=== PATIENT | female | born 1930 | race Caucasian/White ===

== ENCOUNTER 2021-10-09 11:49 | Inpatient (IN) | payer OTHER ==
[2021-10-09 11:59] VITALS: BMI 22.1
[2021-10-09] MEDS ORDERED: AZITHROMYCIN IVPB 500 MG in DEXTROSE 5%-WATER - 250 ML IVPB ONE (14:21)
[2021-10-09] MEDS ORDERED: ASPIRIN 81 MG CHEWABLE TABLETS PO ONE (14:21)
[2021-10-09] MEDS ORDERED: CEFTRIAXONE 1 GM in DEXTROSE 5%-WATER - 100 ML IVPB ONE (14:21)
[2021-10-09] MEDS ORDERED: ASPIRIN 81 MG CHEWABLE TABLETS ONE (14:31)
[2021-10-09] MEDS ORDERED: AZITHROMYCIN 500 MG VIAL IVPB ONE (14:32)
[2021-10-09] MEDS ORDERED: cefTRIAXone SODIUM 1 GM VIAL ONE (14:32)
[2021-10-09 15:23] LABS: ALBUMIN 3.3 g/dl (3.4-5.0); CALCIUM 9.3 mg/dL (8.5-10.1)
[2021-10-09 15:25] LABS: BASO % 0.6 % (0-2.0); EOS % 2.1 % (0-4.5); HEMATOCRIT 29.6 % (32.4-45.2); HEMOGLOBIN 9.8 GM/dL (10.7-15.3); LYMPH % 13.6 % (8-40); MCH 32.8 pg (25.7-33.7); MEAN CELL VOLUME 99.4 fl (80-96); MEAN PLT VOLUME 8.4 fl (7.5-11.1); MONO % 9.3 % (3.8-10.2); NEUT % 74.4 % (42.8-82.8); PLATELET COUNT 191 10^3/uL (134-434); RBC 2.98 M/mm3 (3.60-5.2); RDW 14.1 % (11.6-15.6); WHITE BLOOD COUNT 7.4 K/mm3 (4.0-10.0)
[2021-10-09 15:27] LABS: CREATININE 1.7 mg/dL (0.55-1.3)
[2021-10-09 15:28] LABS: BILIRUBIN,TOTAL 0.3 mg/dL (0.2-1); TOT PROT 6.2 g/dl (6.4-8.2)
[2021-10-10] MEDS: DOXYCYCLINE INJECTION 100 MG in DEXTROSE 5%-WATER 100 ML IVPB SCH ×3 (00:21→22:39)
[2021-10-10] MEDS ORDERED: ACETAMINOPHEN 1000 MG/100 ML BAG IVPB PRN ×2 (02:27→20:58)
[2021-10-10] MEDS ORDERED: cefTRIAXone SODIUM 1 GM VIAL ONE (09:18)
[2021-10-10] MEDS ORDERED: DOXYCYCLINE HYCLATE 100 MG VIAL ONE ×2 (09:18→09:19)
[2021-10-10] MEDS ORDERED: DEXTROSE 5%-WATER - 50 ML IVPB ONE (09:19)
[2021-10-10] MEDS ORDERED: DEXTROSE 5%-WATER 100 ML IVPB ONE (09:19)
[2021-10-10] MEDS: CHOLECALCIFEROL (VIT D3) 1,000 UNIT (25 MCG) TABLET PO SCH (10:08)
[2021-10-10] MEDS: PANTOPRAZOLE 40 MG TABLET PO SCH (10:11)
[2021-10-10] MEDS: ASCORBIC ACID 500 MG TABLET (FP) PO SCH (10:11)
[2021-10-10] MEDS: FERROUS SO4 325 MG TABLET (FP) PO SCH (10:11)
[2021-10-10] MEDS: SODIUM CHLORIDE 1,000 ML IV SCH (10:11)
[2021-10-10 12:39] LABS: BASO % 0.5 % (0-2.0); EOS % 1.9 % (0-4.5); HEMATOCRIT 29.7 % (32.4-45.2); HEMOGLOBIN 9.8 GM/dL (10.7-15.3); LYMPH % 14.2 % (8-40); MCH 32.8 pg (25.7-33.7); MCHC 32.9 g/dl (32.0-36.0); MEAN CELL VOLUME 99.8 fl (80-96); MEAN PLT VOLUME 8.4 fl (7.5-11.1); MONO % 6.2 % (3.8-10.2); NEUT % 77.2 % (42.8-82.8); PLATELET COUNT 189 10^3/uL (134-434); RBC 2.98 M/mm3 (3.60-5.2); RDW 13.5 % (11.6-15.6)
[2021-10-10] MEDS: CEFTRIAXONE 1 GM in DEXTROSE 5%-WATER - 50 ML IVPB SCH (12:49)
[2021-10-10 13:04] LABS: ALBUMIN 3.3 g/dl (3.4-5.0); CALCIUM 9.3 mg/dL (8.5-10.1)
[2021-10-10 13:05] LABS: BLOOD UREA NITROGEN 51.4 mg/dL (7-18); MAGNESIUM 2.6 mg/dL (1.8-2.4)
[2021-10-10 13:08] LABS: CREATININE 1.4 mg/dL (0.55-1.3)
[2021-10-10 13:10] LABS: BILIRUBIN,TOTAL 0.4 mg/dL (0.2-1); TOT PROT 6.1 g/dl (6.4-8.2)
[2021-10-10 14:55] LABS: PH,URINE 5.5 (5.0-8.0); URINE APPEARANCE CLEAR; URINE BILIRUBIN NEGATIVE (NEGATIVE); URINE COLOR YELLOW; URINE GLUCOSE (UA) NEGATIVE (NEGATIVE); URINE KETONE NEGATIVE (NEGATIVE); URINE LEUK ESTERASE NEGATIVE (NEGATIVE); URINE NITRITE NEGATIVE (NEGATIVE); URINE PROTEIN NEGATIVE (NEGATIVE); URINE UROBILINOGEN 0.2 mg/dL (0.2-1.0)
[2021-10-10] MEDS ORDERED: RIVAROXABAN 15 MG TABLET PO SCH (18:00)
[2021-10-10] MEDS ORDERED: ACETAMINOPHEN 1000 MG/100 ML BAG IVPB ONE ×2 (20:50→20:58)
[2021-10-10] MEDS ORDERED: ACETAMINOPHEN INJECTION 100 ML IVPB ONE (20:52)
[2021-10-10] MEDS: APIXABAN 2.5 MG TABLET PO SCH (21:01)
[2021-10-11] MEDS ORDERED: DOXYCYCLINE HYCLATE 100 MG VIAL ONE ×3 (08:31→20:14)
[2021-10-11] MEDS ORDERED: DEXTROSE 5%-WATER 100 ML IVPB ONE ×3 (08:31→20:14)
[2021-10-11] MEDS ORDERED: cefTRIAXone SODIUM 1 GM VIAL ONE (08:32)
[2021-10-11] MEDS: SODIUM CHLORIDE 1,000 ML IV SCH (09:43)
[2021-10-11] MEDS: CHOLECALCIFEROL (VIT D3) 1,000 UNIT (25 MCG) TABLET PO SCH (09:53)
[2021-10-11] MEDS: PANTOPRAZOLE 40 MG TABLET PO SCH (09:53)
[2021-10-11] MEDS: APIXABAN 2.5 MG TABLET PO SCH ×2 (09:53→21:50)
[2021-10-11] MEDS: FERROUS SO4 325 MG TABLET (FP) PO SCH (09:53)
[2021-10-11] MEDS: ASCORBIC ACID 500 MG TABLET (FP) PO SCH (09:53)
[2021-10-11] MEDS: DOXYCYCLINE INJECTION 100 MG in DEXTROSE 5%-WATER 100 ML IVPB SCH ×2 (11:00→21:50)
[2021-10-11] MEDS: MEGESTROL ACETATE 40 MG TABLET PO SCH (11:03)
[2021-10-11] MEDS: CEFTRIAXONE 1 GM in DEXTROSE 5%-WATER - 50 ML IVPB SCH (13:38)
[2021-10-12 07:05] LABS: BASO % 0.5 % (0-2.0); EOS % 2.7 % (0-4.5); HEMATOCRIT 25.6 % (32.4-45.2); HEMOGLOBIN 8.7 GM/dL (10.7-15.3); LYMPH % 17.1 % (8-40); MCH 33.7 pg (25.7-33.7); MEAN CELL VOLUME 99.3 fl (80-96); MONO % 7.7 % (3.8-10.2); PLATELET COUNT 162 10^3/uL (134-434); RBC 2.58 M/mm3 (3.60-5.2); RDW 13.6 % (11.6-15.6); WHITE BLOOD COUNT 7.2 K/mm3 (4.0-10.0)
[2021-10-12 07:20] LABS: BLOOD UREA NITROGEN 30.2 mg/dL (7-18); CALCIUM 8.4 mg/dL (8.5-10.1)
[2021-10-12 07:21] LABS: MAGNESIUM 2.2 mg/dL (1.8-2.4)
[2021-10-12 07:23] LABS: CREATININE 0.9 mg/dL (0.55-1.3)
[2021-10-12 07:25] LABS: BILIRUBIN,TOTAL 0.4 mg/dL (0.2-1); TOT PROT 5.2 g/dl (6.4-8.2)
[2021-10-12 07:55] LABS: ALBUMIN 2.6 g/dl (3.4-5.0)
[2021-10-12] MEDS ORDERED: DEXTROSE 5%-WATER 100 ML IVPB ONE (09:48)
[2021-10-12] MEDS ORDERED: DOXYCYCLINE HYCLATE 100 MG VIAL ONE (09:48)
[2021-10-12] MEDS ORDERED: cefTRIAXone SODIUM 1 GM VIAL ONE (09:49)
[2021-10-12] MEDS ORDERED: DEXTROSE 5%-WATER - 50 ML IVPB ONE (09:49)
[2021-10-12] MEDS: SODIUM CHLORIDE 1,000 ML IV SCH (10:02)
[2021-10-12] MEDS: PANTOPRAZOLE 40 MG TABLET PO SCH (10:03)
[2021-10-12] MEDS: MEGESTROL ACETATE 40 MG TABLET PO SCH (10:03)
[2021-10-12] MEDS: ASCORBIC ACID 500 MG TABLET (FP) PO SCH (10:04)
[2021-10-12] MEDS: FERROUS SO4 325 MG TABLET (FP) PO SCH (10:04)
[2021-10-12] MEDS: APIXABAN 2.5 MG TABLET PO SCH ×2 (10:04→21:17)
[2021-10-12] MEDS: CHOLECALCIFEROL (VIT D3) 1,000 UNIT (25 MCG) TABLET PO SCH (10:04)
[2021-10-12] MEDS: CEFTRIAXONE 1 GM in DEXTROSE 5%-WATER - 50 ML IVPB SCH (10:04)
[2021-10-12] MEDS: DOXYCYCLINE INJECTION 100 MG in DEXTROSE 5%-WATER 100 ML IVPB SCH (10:05)
[2021-10-12] MEDS: ACETAMINOPHEN 325 MG TABLET (FP) PO PRN ×2 (12:49→21:23)
[2021-10-13 07:01] LABS: BASO % 0.5 % (0-2.0); EOS % 2.4 % (0-4.5); HEMATOCRIT 25.2 % (32.4-45.2); HEMOGLOBIN 8.4 GM/dL (10.7-15.3); LYMPH % 16.9 % (8-40); MCH 33.1 pg (25.7-33.7); MCHC 33.2 g/dl (32.0-36.0); MEAN CELL VOLUME 99.6 fl (80-96); MEAN PLT VOLUME 8.2 fl (7.5-11.1); MONO % 6.5 % (3.8-10.2); NEUT % 73.7 % (42.8-82.8); PLATELET COUNT 151 10^3/uL (134-434); RBC 2.53 M/mm3 (3.60-5.2); RDW 13.4 % (11.6-15.6); WHITE BLOOD COUNT 6.9 K/mm3 (4.0-10.0)
[2021-10-13 07:42] LABS: CREATININE 0.8 mg/dL (0.55-1.3)
[2021-10-13 07:43] LABS: ALBUMIN 2.5 g/dl (3.4-5.0); BLOOD UREA NITROGEN 23.3 mg/dL (7-18)
[2021-10-13 07:44] LABS: BILIRUBIN,TOTAL 0.3 mg/dL (0.2-1); CALCIUM 8.7 mg/dL (8.5-10.1); TOT PROT 4.8 g/dl (6.4-8.2)
[2021-10-13] MEDS ORDERED: DEXTROSE 5%-WATER - 50 ML IVPB ONE (09:18)
[2021-10-13] MEDS ORDERED: cefTRIAXone SODIUM 1 GM VIAL ONE (09:18)
[2021-10-13] MEDS: MEGESTROL ACETATE 40 MG TABLET PO SCH (10:01)
[2021-10-13] MEDS: CHOLECALCIFEROL (VIT D3) 1,000 UNIT (25 MCG) TABLET PO SCH (10:01)
[2021-10-13] MEDS: APIXABAN 2.5 MG TABLET PO SCH ×2 (10:01→21:15)
[2021-10-13] MEDS: FERROUS SO4 325 MG TABLET (FP) PO SCH (10:01)
[2021-10-13] MEDS: ASCORBIC ACID 500 MG TABLET (FP) PO SCH (10:01)
[2021-10-13] MEDS: PANTOPRAZOLE 40 MG TABLET PO SCH (10:01)
[2021-10-13] MEDS: CEFTRIAXONE 1 GM in DEXTROSE 5%-WATER - 50 ML IVPB SCH (10:01)
[2021-10-13 12:08] LABS: SARS-CoV-2 NAA Not Detected (Not Detected)
[2021-10-13] MEDS: DOXYCYCLINE INJECTION 100 MG in DEXTROSE 5%-WATER 100 ML IVPB SCH (13:50)
[2021-10-13] MEDS: ACETAMINOPHEN 325 MG TABLET (FP) PO PRN (20:23)
[2021-10-14] MEDS: ACETAMINOPHEN 325 MG TABLET (FP) PO PRN ×3 (06:11→22:25)
[2021-10-14] MEDS: MEGESTROL ACETATE 40 MG TABLET PO SCH (09:38)
[2021-10-14] MEDS: ASCORBIC ACID 500 MG TABLET (FP) PO SCH (09:38)
[2021-10-14] MEDS: APIXABAN 2.5 MG TABLET PO SCH ×2 (09:38→22:25)
[2021-10-14] MEDS: CHOLECALCIFEROL (VIT D3) 1,000 UNIT (25 MCG) TABLET PO SCH (09:38)
[2021-10-14] MEDS: PANTOPRAZOLE 40 MG TABLET PO SCH (09:38)
[2021-10-14] MEDS: FERROUS SO4 325 MG TABLET (FP) PO SCH (09:38)
[2021-10-15] MEDS: APIXABAN 2.5 MG TABLET PO SCH ×2 (10:37→22:26)
[2021-10-15] MEDS: MEGESTROL ACETATE 40 MG TABLET PO SCH (10:37)
[2021-10-15] MEDS: PANTOPRAZOLE 40 MG TABLET PO SCH (10:37)
[2021-10-15] MEDS: CHOLECALCIFEROL (VIT D3) 1,000 UNIT (25 MCG) TABLET PO SCH (10:37)
[2021-10-15] MEDS: FERROUS SO4 325 MG TABLET (FP) PO SCH (10:37)
[2021-10-15] MEDS: ASCORBIC ACID 500 MG TABLET (FP) PO SCH (10:37)
[2021-10-15 11:42] LABS: BASO % 0.8 % (0-2.0); EOS % 2.4 % (0-4.5); HEMATOCRIT 26.8 % (32.4-45.2); HEMOGLOBIN 8.8 GM/dL (10.7-15.3); LYMPH % 20.3 % (8-40); MCH 32.6 pg (25.7-33.7); MCHC 32.7 g/dl (32.0-36.0); MEAN CELL VOLUME 99.8 fl (80-96); MEAN PLT VOLUME 8.6 fl (7.5-11.1); MONO % 7.2 % (3.8-10.2); NEUT % 69.3 % (42.8-82.8); PLATELET COUNT 174 10^3/uL (134-434); RBC 2.69 M/mm3 (3.60-5.2); RDW 13.3 % (11.6-15.6); WHITE BLOOD COUNT 6.7 K/mm3 (4.0-10.0)
[2021-10-15 12:01] LABS: CALCIUM 9.5 mg/dL (8.5-10.1)
[2021-10-15 12:02] LABS: BLOOD UREA NITROGEN 23.2 mg/dL (7-18)
[2021-10-15 12:05] LABS: CREATININE 0.9 mg/dL (0.55-1.3)
[2021-10-15] MEDS: ACETAMINOPHEN 325 MG TABLET (FP) PO PRN (17:08)
[2021-10-16 09:34] VITALS: BP 146/97; PULSE 86; TEMP 98.4
[2021-10-16] MEDS: ASCORBIC ACID 500 MG TABLET (FP) PO SCH (09:45)
[2021-10-16] MEDS: MEGESTROL ACETATE 40 MG TABLET PO SCH (09:45)
[2021-10-16] MEDS: PANTOPRAZOLE 40 MG TABLET PO SCH (09:45)
[2021-10-16] MEDS: FERROUS SO4 325 MG TABLET (FP) PO SCH (09:45)
[2021-10-16] MEDS: APIXABAN 2.5 MG TABLET PO SCH (09:45)
[2021-10-16] MEDS: CHOLECALCIFEROL (VIT D3) 1,000 UNIT (25 MCG) TABLET PO SCH (09:45)
[2021-10-16] MEDS: ACETAMINOPHEN 325 MG TABLET (FP) PO PRN (13:03)
== END 2021-10-16 14:33 | DRG 193 ==
LOC: FER 11:49 → FM/S 14:33 → J4W 10-10 02:25
PROVIDERS: ADMIT Internal Medicine; ATTEND Nurse Practitioner Acute Care
DX: J12.82 Pneumonia due to coronavirus disease 2019 (principal); U07.1 COVID-19; N18.4 Chronic kidney disease, stage 4 (severe); I13.0 Hypertensive heart and chronic kidney disease with heart failure and stage 1 through stage 4 chronic kidney disease, or unspecified chronic kidney disease; I24.8 Other forms of acute ischemic heart disease; I50.32 Chronic diastolic (congestive) heart failure; I25.10 Atherosclerotic heart disease of native coronary artery without angina pectoris; I48.91 Unspecified atrial fibrillation; J44.9 Chronic obstructive pulmonary disease, unspecified; F03.90 Unspecified dementia, unspecified severity, without behavioral disturbance, psychotic disturbance, mood disturbance, and anxiety; I27.20 Pulmonary hypertension, unspecified; R62.7 Adult failure to thrive
CPT/HCPCS: 36415; 70450-TC; 71045-TC-FY; 71250-TC; 72125-TC; 72170-TC-FY; 80048; 80053; 81003; 82436; 82550; 82607; 82728; 82746; 82962; 83690; 83735; 83880; 84133; 84300; 84484; 85025; 85379; 86140; 87086; 93005; 93306-TC; 97116-GP; 97162-GP; 99285-25; C9803-CS; J8999; U0003; U0005

== ENCOUNTER 2022-06-15 13:10 | Inpatient (IN) | payer OTHER, MEDICARE ==
[2022-06-15 15:34] LABS: INR 1.04 (0.83-1.09)
[2022-06-15 15:37] LABS: ACTIVATED PTT 27.1 SECONDS (25.2-36.5)
[2022-06-15 15:41] LABS: HEMATOCRIT 30.3 % (32.4-45.2); HEMOGLOBIN 10.2 G/dL (10.7-15.3); MCH 31.4 pg (25.7-33.7); MCHC 33.7 g/dl (32.0-36.0); MEAN CELL VOLUME 93.1 fl (80-96); MEAN PLT VOLUME 7.9 fl (7.5-11.1); PLATELET COUNT 350.6 10^3/uL (134-434); RBC 3.25 10^6/uL (3.60-5.2); RDW 14.6 % (11.6-15.6); WHITE BLOOD COUNT 11.7 10^3/uL (4.0-10.8)
[2022-06-15 15:41] LABS: ALBUMIN 3.2 g/dl (3.4-5.0); CALCIUM 9.1 mg/dl (8.5-10); CREATININE 2.2 mg/dl (0.55-1.3); MAGNESIUM 2.2 mg/dL (1.8-2.4); TOT PROT 6.2 g/dl (6.4-8.2)
[2022-06-15] MEDS ORDERED: SODIUM CHLORIDE 0.9% 500 ML INFUS.BAG IV ONE (16:22)
[2022-06-15] MEDS ORDERED: ACETAMINOPHEN 325 MG TABLET (FP) PO ONE ×2 (16:42→22:48)
[2022-06-15] MEDS ORDERED: ACETAMINOPHEN 325 MG TABLET (FP) ONE (16:50)
[2022-06-15 18:27] LABS: PLATELET ESTIMATE ADEQUATE
[2022-06-16 08:41] LABS: ALBUMIN 2.7 g/dl (3.4-5.0); CALCIUM 8.7 mg/dl (8.5-10); CREATININE 2.1 mg/dl (0.55-1.3); INR 1.08 (0.83-1.09); MAGNESIUM 2.2 mg/dL (1.8-2.4); PHOSPHOROUS 4.4 mg/dl (2.5-4.9); PROTHROMBIN TIME (PATIENT) 12.4 SEC (9.7-13.0); TOT PROT 5.2 g/dl (6.4-8.2)
[2022-06-16 08:44] LABS: ACTIVATED PTT 28.9 SECONDS (25.2-36.5)
[2022-06-16 09:35] LABS: HEMATOCRIT 26.1 % (32.4-45.2); HEMOGLOBIN 8.7 G/dL (10.7-15.3); MCHC 33.2 g/dl (32.0-36.0); MEAN CELL VOLUME 93.3 fl (80-96); MEAN PLT VOLUME 8.3 fl (7.5-11.1); PLATELET COUNT 299.7 10^3/uL (134-434); RDW 14.4 % (11.6-15.6); WHITE BLOOD COUNT 7.4 10^3/uL (4.0-10.8)
[2022-06-16] MEDS: ACETAMINOPHEN 325 MG TABLET (FP) PO PRN ×3 (09:56→22:24)
[2022-06-16] MEDS ORDERED: RIVAROXABAN 20 MG TABLET PO SCH (10:00)
[2022-06-16] MEDS ORDERED: PATIENT'S OWN MEDICATION (NON-FORMULARY) (Ferrous Sulfate [Iron] 325 MG Tablet) PO SCH (10:00)
[2022-06-16] MEDS ORDERED: PATIENT'S OWN MEDICATION (NON-FORMULARY) (Omeprazole Pediatric Solution 20 MG Capsule.Dr) PO SCH (10:00)
[2022-06-16] MEDS ORDERED: POTASSIUM CHLORIDE TABS 20 MEQ TABLET.ER (FP) PO ONE (10:16)
[2022-06-16] MEDS ORDERED: SODIUM CHLORIDE 1,000 ML IV SCH (10:30)
[2022-06-16 10:42] LABS: N-TERMINAL BNP 7401.4 pg/ml (5-450)
[2022-06-17] MEDS ORDERED: SODIUM CHLORIDE 1,000 ML IV SCH (02:49)
[2022-06-17 08:38] LABS: BASO % 0.7 % (0-2.0); HEMATOCRIT 27.2 % (32.4-45.2); HEMOGLOBIN 8.9 GM/dL (10.7-15.3); LYMPH % 26.6 % (8-40); MCH 30.1 pg (25.7-33.7); MCHC 32.8 g/dl (32.0-36.0); MEAN CELL VOLUME 91.8 fl (80-96); MEAN PLT VOLUME 8.2 fl (7.5-11.1); MONO % 7.1 % (3.8-10.2); NEUT % 64.6 % (42.8-82.8); PLATELET COUNT 289 10^3/uL (134-434); RBC 2.97 M/mm3 (3.60-5.2); RDW 14.4 % (11.6-15.6); WHITE BLOOD COUNT 8.4 K/mm3 (4.0-10.0)
[2022-06-17 09:19] LABS: ALBUMIN 2.7 g/dl (3.4-5.0); CALCIUM 9.1 mg/dL (8.5-10.1)
[2022-06-17 09:20] LABS: BLOOD UREA NITROGEN 78.7 mg/dL (7-18)
[2022-06-17] MEDS: ACETAMINOPHEN 325 MG TABLET (FP) PO PRN ×2 (09:22→13:20)
[2022-06-17 09:23] LABS: CREATININE 1.7 mg/dL (0.55-1.3)
[2022-06-17 09:24] LABS: BILIRUBIN,TOTAL 0.7 mg/dL (0.2-1); TOT PROT 5.3 g/dl (6.4-8.2)
[2022-06-17] MEDS: CHOLECALCIFEROL (VIT D3) 1,000 UNIT (25 MCG) TABLET PO SCH (09:25)
[2022-06-17] MEDS: FERROUS SO4 325 MG TABLET (FP) PO SCH (09:25)
[2022-06-17] MEDS: PANTOPRAZOLE 40 MG TABLET PO SCH (09:25)
[2022-06-17] MEDS ORDERED: PANTOPRAZOLE 40 MG TABLET PO SCH (10:00)
[2022-06-17] MEDS ORDERED: FERROUS SO4 325 MG TABLET (FP) PO SCH (10:00)
[2022-06-17] MEDS ORDERED: CHOLECALCIFEROL (VIT D3) 1,000 UNIT (25 MCG) TABLET PO SCH (10:00)
[2022-06-17] MEDS: SODIUM CHLORIDE 1 GM TABLET PO SCH ×2 (12:04→23:24)
[2022-06-17 18:02] VITALS: BMI 18.5
[2022-06-17] MEDS: RIVAROXABAN 20 MG TABLET PO SCH (18:24)
[2022-06-18] MEDS: ACETAMINOPHEN 325 MG TABLET (FP) PO PRN ×3 (03:12→15:03)
[2022-06-18] MEDS: PANTOPRAZOLE 40 MG TABLET PO SCH (09:29)
[2022-06-18] MEDS: CHOLECALCIFEROL (VIT D3) 1,000 UNIT (25 MCG) TABLET PO SCH (09:29)
[2022-06-18] MEDS: FERROUS SO4 325 MG TABLET (FP) PO SCH (09:29)
[2022-06-18 11:46] LABS: BASO % 0.5 % (0-2.0); EOS % 0.8 % (0-4.5); HEMATOCRIT 25.2 % (32.4-45.2); HEMOGLOBIN 8.2 GM/dL (10.7-15.3); LYMPH % 14.6 % (8-40); MCH 29.9 pg (25.7-33.7); MCHC 32.3 g/dl (32.0-36.0); MEAN CELL VOLUME 92.5 fl (80-96); MEAN PLT VOLUME 8.5 fl (7.5-11.1); MONO % 6.4 % (3.8-10.2); NEUT % 77.7 % (42.8-82.8); PLATELET COUNT 250 10^3/uL (134-434); RBC 2.73 M/mm3 (3.60-5.2); RDW 14.8 % (11.6-15.6); WHITE BLOOD COUNT 10.7 K/mm3 (4.0-10.0)
[2022-06-18] MEDS: SODIUM CHLORIDE 1 GM TABLET PO SCH (12:10)
[2022-06-18] MEDS: DEXTROSE 5%-0.45% SALINE 1,000 ML IV SCH (12:13)
[2022-06-18 12:20] LABS: CALCIUM 8.8 mg/dL (8.5-10.1)
[2022-06-18 12:25] LABS: CREATININE 1.5 mg/dL (0.55-1.3)
[2022-06-18] MEDS ORDERED: oxyCODONE HCL 5 MG TABLET PO PRN ×2 (17:31→18:38)
[2022-06-18] MEDS: RIVAROXABAN 20 MG TABLET PO SCH (18:34)
[2022-06-19 08:25] LABS: BASO % 0.5 % (0-2.0); EOS % 1.4 % (0-4.5); HEMATOCRIT 25.4 % (32.4-45.2); HEMOGLOBIN 8.2 GM/dL (10.7-15.3); LYMPH % 17.3 % (8-40); MCH 29.7 pg (25.7-33.7); MCHC 32.1 g/dl (32.0-36.0); MEAN CELL VOLUME 92.7 fl (80-96); MEAN PLT VOLUME 8.7 fl (7.5-11.1); MONO % 6.6 % (3.8-10.2); NEUT % 74.2 % (42.8-82.8); PLATELET COUNT 231 10^3/uL (134-434); RBC 2.75 M/mm3 (3.60-5.2); RDW 14.5 % (11.6-15.6); WHITE BLOOD COUNT 9.4 K/mm3 (4.0-10.0)
[2022-06-19 08:46] LABS: CALCIUM 8.6 mg/dL (8.5-10.1)
[2022-06-19 08:47] LABS: ALBUMIN 2.4 g/dl (3.4-5.0); BLOOD UREA NITROGEN 51.3 mg/dL (7-18)
[2022-06-19 08:50] LABS: CREATININE 1.3 mg/dL (0.55-1.3)
[2022-06-19 08:51] LABS: BILIRUBIN,TOTAL 0.7 mg/dL (0.2-1); TOT PROT 5.1 g/dl (6.4-8.2)
[2022-06-19] MEDS: FERROUS SO4 325 MG TABLET (FP) PO SCH (10:48)
[2022-06-19] MEDS: PANTOPRAZOLE 40 MG TABLET PO SCH (10:49)
[2022-06-19] MEDS: CHOLECALCIFEROL (VIT D3) 1,000 UNIT (25 MCG) TABLET PO SCH (10:49)
[2022-06-19] MEDS: DEXTROSE 5%-0.45% SALINE 1,000 ML IV SCH (10:50)
[2022-06-19] MEDS ORDERED: DEXTROSE 5%-0.45% SALINE 1,000 ML IV SCH (11:26)
[2022-06-19] MEDS: RIVAROXABAN 20 MG TABLET PO SCH (17:44)
[2022-06-19] MEDS: ACETAMINOPHEN 325 MG TABLET (FP) PO PRN (20:27)
[2022-06-20 07:18] LABS: BASO % 0.6 % (0-2.0); EOS % 1.4 % (0-4.5); HEMATOCRIT 23.8 % (32.4-45.2); HEMOGLOBIN 7.7 GM/dL (10.7-15.3); LYMPH % 19.1 % (8-40); MCH 30.2 pg (25.7-33.7); MCHC 32.5 g/dl (32.0-36.0); MEAN CELL VOLUME 92.9 fl (80-96); MEAN PLT VOLUME 8.8 fl (7.5-11.1); MONO % 9.1 % (3.8-10.2); NEUT % 69.8 % (42.8-82.8); PLATELET COUNT 193 10^3/uL (134-434); RBC 2.56 M/mm3 (3.60-5.2); RDW 14.9 % (11.6-15.6); WHITE BLOOD COUNT 9.2 K/mm3 (4.0-10.0)
[2022-06-20 07:39] LABS: CALCIUM 8.6 mg/dL (8.5-10.1)
[2022-06-20 07:40] LABS: BLOOD UREA NITROGEN 38.6 mg/dL (7-18)
[2022-06-20 07:43] LABS: CREATININE 1.1 mg/dL (0.55-1.3)
[2022-06-20] MEDS: PANTOPRAZOLE 40 MG TABLET PO SCH (09:34)
[2022-06-20] MEDS: CHOLECALCIFEROL (VIT D3) 1,000 UNIT (25 MCG) TABLET PO SCH (09:34)
[2022-06-20] MEDS: FERROUS SO4 325 MG TABLET (FP) PO SCH (09:35)
[2022-06-20 12:22] VITALS: BP 108/60; PULSE 80; RESP 20; TEMP 97.7
== END 2022-06-20 13:35 | disposition home health service (06) | DRG 683 ==
LOC: FER 13:10 → FM/S 16:24 → J4S 06-17 02:46
PROVIDERS: ADMIT Internal Medicine
DX: N17.9 Acute kidney failure, unspecified (principal); I13.0 Hypertensive heart and chronic kidney disease with heart failure and stage 1 through stage 4 chronic kidney disease, or unspecified chronic kidney disease; I50.32 Chronic diastolic (congestive) heart failure; I48.19 Other persistent atrial fibrillation; Z79.01 Long term (current) use of anticoagulants; D64.9 Anemia, unspecified; Z86.16 Personal history of COVID-19; Z95.2 Presence of prosthetic heart valve; R62.7 Adult failure to thrive; N18.9 Chronic kidney disease, unspecified; N85.8 Other specified noninflammatory disorders of uterus
CPT/HCPCS: 0241U-QW; 36415; 70460-TC; 71045-TC-FY; 72125-TC; 76775-TC; 76830-TC; 76856-TC; 80048; 80053; 81003; 82436; 82550; 82570; 82728; 83540; 83550; 83605; 83735; 83880; 84100; 84133; 84300; 84443; 84484; 85025; 85027; 85045; 85610; 85730; 87040; 87086; 87186; 93005; 97116-GP; 97161-GP; 99285-25

== ENCOUNTER 2022-07-03 10:21 | Inpatient (IN) | payer OTHER, MEDICARE ==
[2022-07-03] MEDS ORDERED: ACETAMINOPHEN 1000 MG/100 ML BAG IVPB ONE (10:32)
[2022-07-03] MEDS ORDERED: SODIUM CHLORIDE 0.9% 1000 ML INFUS.BAG IV ONE (10:32)
[2022-07-03] MEDS ORDERED: ACETAMINOPHEN INJECTION 100 ML IVPB ONE (10:40)
[2022-07-03 12:40] LABS: INR 2.28 (0.83-1.09); PROTHROMBIN TIME (PATIENT) 26.4 SEC (9.7-13.0)
[2022-07-03 12:43] LABS: ACTIVATED PTT 37.6 SECONDS (25.2-36.5)
[2022-07-03 12:45] LABS: HEMATOCRIT 22.9 % (32.4-45.2); HEMOGLOBIN 7.2 G/dL (10.7-15.3); MCH 29.6 pg (25.7-33.7); MCHC 31.6 g/dl (32.0-36.0); MEAN CELL VOLUME 93.9 fl (80-96); MEAN PLT VOLUME 7.6 fl (7.5-11.1); PLATELET COUNT 261.6 10^3/uL (134-434); RBC 2.44 10^6/uL (3.60-5.2); RDW 15.2 % (11.6-15.6); WHITE BLOOD COUNT 8.7 10^3/uL (4.0-10.8)
[2022-07-03 12:57] LABS: ALBUMIN 2.2 g/dl (3.4-5.0); BILIRUBIN,TOTAL 0.4 mg/dl (0.2-1); CALCIUM 8.1 mg/dl (8.5-10); TOT PROT 4.7 g/dl (6.4-8.2)
[2022-07-03 16:50] VITALS: BMI 19.1
[2022-07-03] MEDS: ACETAMINOPHEN 325 MG TABLET (FP) PO PRN (21:39)
[2022-07-04 08:24] LABS: ALBUMIN 2.3 g/dl (3.4-5.0); BILIRUBIN,TOTAL 0.8 mg/dl (0.2-1); CALCIUM 8.3 mg/dl (8.5-10)
[2022-07-04 10:33] LABS: BASO % 0.7 % (0-2.0); EOS % 1.2 % (0-4.5); HEMATOCRIT 27.9 % (32.4-45.2); HEMOGLOBIN 9.3 GM/dL (10.7-15.3); LYMPH % 7.2 % (8-40); MCH 30.5 pg (25.7-33.7); MCHC 33.2 g/dl (32.0-36.0); MEAN CELL VOLUME 91.9 fl (80-96); MEAN PLT VOLUME 7.6 fl (7.5-11.1); MONO % 6.4 % (3.8-10.2); NEUT % 84.5 % (42.8-82.8); PLATELET COUNT 296 10^3/uL (134-434); RBC 3.04 M/mm3 (3.60-5.2); RDW 14.6 % (11.6-15.6); WHITE BLOOD COUNT 9.1 K/mm3 (4.0-10.0)
[2022-07-05 08:08] LABS: CARCINOEMBRYONIC ANTIGEN 2.1 ng/mL (0.0-4.7)
[2022-07-05] MEDS: ACETAMINOPHEN 325 MG TABLET (FP) PO PRN ×2 (08:41→22:21)
[2022-07-05 09:39] LABS: CHOLESTEROL 97 mg/dl (50-200); HDL CHOLESTEROL 34 mg/dl (40-60); LDL CHOLESTEROL (ONLY DFH) 50 mg/dl (5-100); TRIGLYCERIDES 67 mg/dl (0-150)
[2022-07-05 12:12] LABS: HEMOGLOBIN 8.8 G/dL (10.7-15.3); MCH 30.3 pg (25.7-33.7); MCHC 32.6 g/dl (32.0-36.0); MEAN PLT VOLUME 7.6 fl (7.5-11.1); PLATELET COUNT 247.9 10^3/uL (134-434); RDW 15.2 % (11.6-15.6); WHITE BLOOD COUNT 8.3 10^3/uL (4.0-10.8)
[2022-07-05 12:47] LABS: BILIRUBIN,TOTAL 0.6 mg/dl (0.2-1); CALCIUM 8.2 mg/dl (8.5-10); TOT PROT 4.5 g/dl (6.4-8.2)
[2022-07-05 13:06] LABS: ANISOCYTOSIS 1+; PLATELET ESTIMATE ADEQUATE
[2022-07-05] MEDS: PANTOPRAZOLE 40 MG TABLET PO SCH (18:24)
[2022-07-05 19:52] VITALS: RESP 17
[2022-07-06 06:57] VITALS: BP 142/68
[2022-07-06] MEDS: ACETAMINOPHEN 325 MG TABLET (FP) PO PRN (08:29)
[2022-07-06 08:37] LABS: ALBUMIN 2.2 g/dl (3.4-5.0); BILIRUBIN,TOTAL 0.5 mg/dl (0.2-1); CALCIUM 8.4 mg/dl (8.5-10); CREATININE 0.9 mg/dl (0.55-1.3); TOT PROT 4.9 g/dl (6.4-8.2)
[2022-07-06] MEDS: PANTOPRAZOLE 40 MG TABLET PO SCH (09:57)
[2022-07-06 10:25] LABS: BASO % 0.5 % (0-2.0); EOS % 1.8 % (0-4.5); HEMATOCRIT 27.9 % (32.4-45.2); HEMOGLOBIN 9.3 GM/dL (10.7-15.3); LYMPH % 13.3 % (8-40); MCH 30.9 pg (25.7-33.7); MCHC 33.4 g/dl (32.0-36.0); MEAN CELL VOLUME 92.5 fl (80-96); MEAN PLT VOLUME 7.4 fl (7.5-11.1); MONO % 9.4 % (3.8-10.2); PLATELET COUNT 337 10^3/uL (134-434); RBC 3.01 M/mm3 (3.60-5.2); RDW 15.3 % (11.6-15.6); WHITE BLOOD COUNT 7.8 K/mm3 (4.0-10.0)
[2022-07-06 13:33] VITALS: PULSE 68; TEMP 97.8
== END 2022-07-06 13:15 | disposition home or self-care (01) | DRG 755 ==
LOC: FER 10:21 → FM/S 15:40
PROC: 30233N1 Transfusion of Nonautologous Red Blood Cells into Peripheral Vein, Percutaneous Approach (ICD-10-PCS; principal; 2022-07-03)
DX: D39.12 Neoplasm of uncertain behavior of left ovary (principal); I13.0 Hypertensive heart and chronic kidney disease with heart failure and stage 1 through stage 4 chronic kidney disease, or unspecified chronic kidney disease; I48.19 Other persistent atrial fibrillation; I50.32 Chronic diastolic (congestive) heart failure; N17.9 Acute kidney failure, unspecified; D64.9 Anemia, unspecified; R19.01 Right upper quadrant abdominal swelling, mass and lump; S30.1XXA Contusion of abdominal wall, initial encounter; N18.9 Chronic kidney disease, unspecified; K21.9 Gastro-esophageal reflux disease without esophagitis; E78.5 Hyperlipidemia, unspecified; Z95.2 Presence of prosthetic heart valve
CPT/HCPCS: 0241U-QW; 36415; 36430; 71045-TC-FY; 74177-TC; 80053; 80061; 82272; 82378; 82962; 83036; 85025; 85027; 85610; 85730; 86304; 86850; 86900; 86901; 86922; 97116-GP; 97162-GP; 99285-25; P9058